=== PATIENT | female | born 1940 | race Caucasian/White ===

== ENCOUNTER → 2018-10-30 10:17 | Outpatient (CLI) | payer MEDICARE, OTHER, SELFPAY ==
--- NOTE | 2018-10-30 | DI.MG.S_ITS ---
BILATERAL DIGITAL SCREENING MAMMOGRAM 3D/2D WITH CAD: 10/30/2018 CLINICAL: Routine screening. Comparison is made to exams dated: 10/29/2016 mammogram, 06/08/2014 mammogram, and 06/30/2012 mammogram - [facility]. The tissue of both breasts is predominantly fatty. Current study was also evaluated with a Computer Aided Detection (CAD) system. No significant masses, calcifications, or other findings are seen in either breast. There has been no significant interval change. IMPRESSION: NEGATIVE There is no mammographic evidence of malignancy. A 1 year screening mammogram is recommended. This exam was interpreted at Station ID: [id number]. NOTE: For mammograms, a report in lay terms will be sent to the patient. Approximately 15% of breast malignancies will not be visualized mammographically. In the management of a palpable breast mass, a negative mammogram must not discourage biopsy of a clinically suspicious lesion. Electronically Signed By: Eufemia nielson/efrain:10/30/2018 12:20:58 copy to: Kaylen Castillo letter sent: Normal Exam ACR BI-RADS Category 1: Negative [id number]
== END ==
PROVIDERS: PCP Family Medicine; Visit Provider Family Medicine
DX: Z12.31 Encounter for screening mammogram for malignant neoplasm of breast (principal)
CPT/HCPCS: 77063; 77067

== ENCOUNTER → 2022-08-19 11:39 | Outpatient (CLI) | payer MEDICARE, OTHER, SELFPAY ==
--- NOTE | 2022-08-19 | DI.ECHO.S_ITS ---
[facility] +---------+ : : [address] : : : : [id number] : : : : Phone: [phone]---------+ Echocardiogram Report + + :Name: ABRIL TOM Study Date: 08/19/2022 Height: 70 in : :[facility] ReadingLocation: Weight: 260 lb : : Gender: Female BSA: 2.3 m2 : :: 1940 Age: 81 yrs BP: 161/87 mmHg: :Reason For Study: Cardiac Murmur : :Ordering Physician: CONNIE, : :BAR Biggs Performed By: Jodee Yañez : :Referring: BAR ROSALES : + + Interpretation Summary Borderline concentric left ventricular hypertrophy with ejection fraction 60- 65%. Diastolic parameters suggest a relaxation abnormality of the left ventricle, consistent with probable normal filling pressures. Mild aortic stenosis. Mild mitral regurgitation. The ascending aorta is mildly enlarged. Procedure: A two-dimensional transthoracic echocardiogram with color flow and Doppler was performed. The study quality was technically difficult. There is no prior echocardiogram noted for this patient. A contrast injection of Definity was performed to improve assessment of LV function. The patient was in normal sinus rhythm during the exam. The patient had occasional PVCs during the exam. Left Ventricle: The left ventricle is normal in size. There is borderline concentric left ventricular hypertrophy. The ejection fraction is estimated to be 60-65%. There are no focal wall motion abnormalities. Diastolic parameters suggest a relaxation abnormality of the left ventricle, consistent with probable normal filling pressures. Right Ventricle: The right ventricle is normal in size and function. Atria: The left atrial size is normal. Right atrial size is normal. There is no Doppler evidence for an interatrial shunt. Mitral Valve: The mitral valve is not well visualized. There is no mitral valve stenosis. There is mild mitral regurgitation. Aortic Valve: The aortic valve is trileaflet. The aortic valve is mildly calcified. There is mild aortic stenosis. There is trace aortic regurgitation. Tricuspid Valve: The tricuspid valve is normal. There is no tricuspid stenosis. There is trace tricuspid regurgitation. Pulmonic Valve: The pulmonic valve leaflets are thin and pliable; valve motion is normal. There is no pulmonic valvular stenosis. There is no pulmonic valvular regurgitation. Great Vessels: The aortic root is normal size. The ascending aorta is mildly enlarged. The pulmonary artery is normal size. The IVC is of normal diameter and collapses greater than 50% with a sniff. This suggests a low right atrial pressure of 3 mm Hg. Pericardium/ Pleura There is no pericardial effusion. There is no pleural effusion. MMode/2D Measurements & Calculations LVIDd: 5.7 cm LVOT diam: 2.2 cm LVIDs: 4.6 cm Ao root diam: 3.3 cm FS: 19.3 % asc Aorta Diam: 4.2 cm IVSd: 1.2 cm LVPWd: 1.1 cm LV long. diameter/BSA (cm/m^2): 2.4 LV sys. diameter/BSA (cm/m^2): 2.0 LA A2 area: 20.6 cm2 RA long axis: 6.9 cm LA A4 area: 12.6 cm2 RA area: 20.7 cm2 LA length (vol): 6.4 cm RA vol: 52.8 ml LA vol: 34.2 ml RA : 22.6 ml/m2 LA vol index: 14.7 ml/m2 RVD1 (basal): 4.4 cm LVLs ap4: 6.7 cm Doppler Measurements & Calculations Ao V2 max: 180.0 cm/sec LVOT Max Mayank: 75.4 cm/sec Ao V2 mean: 130.0 cm/sec LV V1 max P.3 mmHg Ao max P.0 mmHg LV V1 VTI: 19.8 cm Ao mean P.0 mmHg CATARINO(I,D): 1.5 cm2 Ao V2 VTI: 49.4 cm CATARINO(V,D): 1.6 cm2 sev ratio: 0.40 CATARINO indexed to BSA (cm^2/m^2): 0.65 MV E max mayank: 83.6 cm/sec PA V2 max: 114.0 cm/sec MV A max mayank: 88.6 cm/sec PA V2 mean: 79.7 cm/sec MV E/A: 0.94 PA mean P.0 mmHg Med Peak E' Mayank: 5.3 cm/sec PA pr(Accel): 24.6 mmHg E/E' med: 15.7 Lat Peak E' Mayank: 6.8 cm/sec E/E' lat: 12.3 E/e' average: 14.0 MV dec time: 0.26 sec SV(LVOT): 75.3 ml AV VR_phl: 0.42 CATARINO(VTI)/BSA_phl: 0.65 MV P1/2t-pr_phl: 77.0 msec Electronically signed by: Jania Mendez on Reading Physician:08/19/2022 02:56 PM
== END ==
PROVIDERS: PCP Family Medicine; Referring Provider Nurse Practitioner Family; Visit Provider Nurse Practitioner Family
DX: I77.89 Other specified disorders of arteries and arterioles (principal); R01.1 Cardiac murmur, unspecified; I08.0 Rheumatic disorders of both mitral and aortic valves; R06.02 Shortness of breath
CPT/HCPCS: 93306; Q9957